=== PATIENT | female | born 1955 | race Caucasian/White ===

== ENCOUNTER 2025-03-03 10:31 | Emergency (ER) | payer MEDICARE, OTHER, SELFPAY ==
[2025-03-03 10:32] VITALS: BP 157/75
[2025-03-03 11:04] VITALS: BP 155/66
[2025-03-03 11:19] VITALS: BMI 23.0
[2025-03-03 11:27] LABS: Hematocrit 40.9 % (37.0-47.0); Hemoglobin 13.6 g/dL (12.0-16.0); Mean Corp Hgb Conc. 33.3 g/dL (33.0-37.0); Mean Corpuscular Volume 90.9 fL (81.0-99.0); Nucleated Red Blood Cells % 0 %; Platelet Count 231 10^3/uL (130-400); Red Cell Dist. Width 12.9 % (11.5-14.5)
[2025-03-03 11:50] LABS: ALT (SGPT) 30 U/L (0-35); AST (SGOT) 28 U/L (14-36); Albumin 4.1 g/dl (3.5-5.0); Alkaline Phosphatase 67 U/L (38-126); Blood Urea Nitrogen 18 mg/dl (7-17); Calcium 8.4 mg/dl (8.4-10.2); Carbon Dioxide 27 mmol/L (22-30); Chloride 97 mmol/L (98-107); Estimated Creatinine Clearance 66 ml/min; Glucose 115 mg/dl (70-99); Lipase 84 U/L (23-300); Potassium 3.8 mmol/L (3.5-5.1); Sodium 133 mmol/L (135-145); Total Protein 6.5 g/dl (6.3-8.2); eGFR > 60.00
--- NOTE | 2025-03-03 11:53 | ED.GENMED ---
History of Present Illness
General
Chief Complaint: Heart Rate Problem
Source: patient
Exam Limitations: none
Time Seen by Provider: 03/03/25 11:42
History of Present Illness
History of Present Illness:
69yoF with a history of hypertension presenting for evaluation of palpitations. Patient felt sick last night after eating dinner and had 1 episode of vomiting. She started to feel like her heart was racing last night. She checked her Fitbit and
her heart rate was between 87 and 90 at that time. She was able to go to bed but woke up this morning feeling worse. Her heart rate was elevated at 122 and she decided to go to urgent care for evaluation. Symptoms resolved by the time she checked
into urgent care. Heart rate was 102 and blood pressure was 180/100. She was sent to the ED for evaluation. Patient is currently asymptomatic. She denies any associated dizziness, syncope, chest pain, shortness of breath. She does admit to
having palpitations at times particularly when she is dehydrated. Her current medications include losartan and metoprolol. She follows with [facility] for her blood pressure.
Phy Exam
General Physical Exam
General Presentation: well appearing and no apparent distress
General age: appears stated age
General Skin: warm and dry
General Habitus: normal
General Mental: alert
ENT Exam
ENT Exam: normocephalic
Cardiovascular Exam
Cardiovascular Exam: regular rate/rhythm, no edema, no murmur and normal peripheral pulses
Pulmonary Exam
Pulmonary Exam: lungs clear, no respiratory distress, no rales, no crackles, no rhonchi and no wheezing
Neurological Exam
Neurological Exam: alert
[place] Coma Scale
Eye Opening: Spontaneous
Verbal Response: Oriented
Motor Response: Obeys Commands
GCS Total Score: 15
Skin Exam
Skin Exam: normal color and warm/dry
Psychiatric Exam
Psychiatric Exam: normal mood/affect
Course
Orders/Labs/Results
Orders:
Orders
03/03/25 10:31
EKG [Electrocardiogram (*1)] Urgent
Reason for Study: Palpitations
03/03/25 10:32
EKG- Treatment ONCE
03/03/25 11:17
CBC/With Diff [Complete Blood Count/With Diff] Urgent
CMP [Comprehensive Metabolic Panel] Urgent
Lipase Urgent
Magnesium Urgent
Comment: ADD
TSH Urgent
Comment: ADD
03/03/25 12:05
Add On- LAB Urgent
Tests Added?: TSH, magnesium
Cardiac Monitoring- Treatment ONCE
0.9% Sodium Chloride 1000 ml [Nss] 1,000 ml IV BOLUS
03/03/25 12:10
Troponin I Urgent
Abnormal Lab Results
03/03/25
11:17
Absolute Neuts (auto) 8.9 H 10^3/uL
(1.4-6.5)
Absolute Lymphs (auto) 0.6 L 10^3/uL
(1.2-3.4)
Neutrophils % 88.2 H %
(42.2-75.2)
Lymphocytes % 6.0 L %
(20.5-51.1)
Sodium 133 L mmol/L
(135-145)
Chloride 97 L mmol/L
(98-107)
BUN 18 H mg/dl
(7-17)
Glucose 115 H mg/dl
(70-99)
03/03/25 11:17
03/03/25 11:17
Vital Signs
Initial and Last Documented VS:
Initial Vital Signs
Temp Pulse Resp BP Pulse Ox
98.4 F 77 16 157/75 100
03/03/25 10:32 03/03/25 10:32 03/03/25 10:32 03/03/25 10:32 03/03/25 10:32
Last Documented Vital Signs
Temp Pulse Resp BP Pulse Ox
98.4 F 71 15 132/62 100
03/03/25 10:32 03/03/25 13:00 03/03/25 13:00 03/03/25 13:00 03/03/25 13:00
MDM/Problems Addressed
Differential Diagnosis Includes:
69yoF here with palpitations that began last night. Now resolved. Had similar symptoms in the past with dehydration and vomited 1x last night. VSS. She is well appearing in no distress and exam reassuring. Differential diagnosis includes:
arrhythmia, PVCs, electrolyte abnormality, thyroid dysfunction
Initial ED plan: Workup initiated in triage. Mild hyponatremia and hypochloremia noted suggesting dehydration. EKG shows NSR without ectopy or ischemic changes. Will place on telemetry and add on magnesium, TSH, and troponin. NS bolus.
*Pulse Oximetry
SaO2: 100
Oxygen Mode of Delivery: Room air
Patient hypoxic: no
*EKG
Interpreted by ED Provider?: Yes
EKG Intrepretation Date: 03/03/25
Heart Rate: 79
Rate: normal
Rhythm: sinus
[place]: normal axis
Interval: normal interval
QRS Pattern: normal QRS
Ischemia: no ischemia
*Critical Care Note
Total Time (30-74mins, 75-104mins- exclusive of procedures): Not Applicable
Update Note
Update Note:
TSH and magnesium normal. Troponin undetectable. Patient remains asymptomatic on reassessment and no telemetry events noted during ED stay. Patient stable for discharge. 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
reviewed. Patient and [id number] in agreement with plan.
ED Attending Note
-
Portions of this chart may have been created with voice recognition software.� Occasional wrong word or��sound alike� substitutions may have occurred due to the inherent limitations of voice recognition software.
Discharge Plan
Departure
Patient Disposition: Home (Routine Discharge)
Date of Disposition: 03/03/25
Time of Disposition: 13:25
Patient with high blood pressure during this ER visit?: No
Discharge Problem:
Palpitations
Instructions: Palpitations (DC)
Referrals:
Sola Ritchie MD [Family Provider, Internal Medicine]
Activity Restrictions/Additional Instructions:
Please call your boat carpenter mechanic today to schedule a follow-up appointment. Return to the ER with any new or worsening symptoms.
Interventions
Interventions:
*Risk Screen - Suicide Last Done: 03/03/25 10:32
*General Assessment Last Done: 03/03/25 11:19
*Neglect/Abuse Screening Last Done: 03/03/25 10:32
*ED COVID-19 Vaccine History Last Done: 03/03/25 11:19
*ED Influenza Vaccine History Last Done: 03/03/25 11:19
*Nursing Disposition Last Done: 03/03/25 13:43
ED- Cardiac Assessment Last Done: 03/03/25 11:19
ED- Pulmonary Assessment Last Done: 03/03/25 11:19
Discharge Date and Time
Discharge Date/Time: 03/03/25 13:46
Print Language: ARMENIAN
[2025-03-03 12:00] VITALS: BP 157/66
[2025-03-03] MEDS: NSS 1000 IV (12:19)
[2025-03-03 12:37] LABS: Magnesium 1.9 mg/dl (1.6-2.3)
[2025-03-03 12:47] LABS: Troponin I < 0.012 ng/ml
[2025-03-03 13:00] VITALS: BP 132/62
[2025-03-03 13:08] LABS: TSH 0.96 uIU/ml (0.47-4.68)
== END 2025-03-03 13:46 | disposition home or self-care (01) ==
LOC: EMR 10:31
PROVIDERS: Physician Assistant; EMERGENCY PHYSICIAN Emergency Medicine; FAMILY PHYSICIAN Internal Medicine
DX: R00.2 Palpitations (principal); I10 Essential (primary) hypertension
CPT/HCPCS: 99284; 96360; 80053; 83690; 83735; 84443; 84484; 85025; 93005